=== PATIENT | female | born 1980 | race Caucasian/White ===

== ENCOUNTER → 2016-03-23 | Outpatient (CLI) | payer OTHER ==
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
--- NOTE | 2016-03-23 15:19 | US ---
Complete Obstetric Ultrasound History: 36-year-old with estimated gestational age of 19 weeks 5 days and EDC of August 12, 2016. Comparison: None available. Findings: Number: 1 Presentation: Vertex Placental location: Anterior. No previa. Cervix: Closed, measuring 3.7 cm transabdominally Maximum vertical pocket: 3.7 cm An anterior subserosal fibroid measures 3.5 x 4.4 x 2.8 cm. Two posterior subserosal fibroids are pre sent, measuring 4.0 x 2.1 x 2.8 cm and 5.2 x 3.3 x 4.6 cm. Biometry: Biparietal diameter: 48 mm 20 weeks, 4 days Head circumference: 178 mm 20 weeks, 2 days Abdominal circumference: 152 mm 20 weeks, 4 days Femur length: 31 mm 19 weeks, 4 days Humerus length: 31 mm 20 weeks, 2 days Transcerebellar diameter: 21 mm 20 weeks, 2 days Average ultrasound age: 20 weeks, 2 days EDC based on today's average ultrasound age: August 08, 2016 Estimated weight is 330 gms +/- 48 gms. The estimated weight percentile is 66 % based on previous dating. ANATOMY SURVEY: Supratentorial brain: Normal Posterior fossa: Normal Spine: Normal Nose and lips: Normal Heart: Four-chamber heart with a heart rate of 146 bpm. The outflow tracts are normal. Stomach: Normal Umbilical cord insertion: Normal Kidneys: Normal Bladder: Normal Number of cord vessels: Three Upper extremities: Normal Lower extremities: Normal Impression: 1. Living single intrauterine with size concordant with dates. 2. Unremarkable anatomy. 3. Fibroid uterus. Please see separate dictation for consultation performed by Heidi Butterfield MD, the same day.
== END ==
LOC: FIMAGING 12:03
PROVIDERS: ATTEND Midwife
DX: Z36 Encounter for antenatal screening of mother (principal); Z3A.19 19 weeks gestation of pregnancy; O34.12 Maternal care for benign tumor of corpus uteri, second trimester; O09.522 Supervision of elderly multigravida, second trimester; O10.912 Unspecified pre-existing hypertension complicating pregnancy, second trimester; O99.342 Other mental disorders complicating pregnancy, second trimester

== ENCOUNTER → 2016-05-21 | Outpatient (CLI) | payer OTHER | LOC: FIMAGING 09:17 | PROVIDERS: ATTEND Midwife | DX: O09.522 Supervision of elderly multigravida, second trimester (principal); Z3A.29 29 weeks gestation of pregnancy; O34.13 Maternal care for benign tumor of corpus uteri, third trimester; D25.9 Leiomyoma of uterus, unspecified; O10.913 Unspecified pre-existing hypertension complicating pregnancy, third trimester ==

== ENCOUNTER → 2016-06-16 | Outpatient (CLI) | payer OTHER | LOC: FIMAGING 13:56 | PROVIDERS: ATTEND Obstetrics & Gynecology | DX: Z36 Encounter for antenatal screening of mother (principal); O34.13 Maternal care for benign tumor of corpus uteri, third trimester; O09.523 Supervision of elderly multigravida, third trimester; Z3A.33 33 weeks gestation of pregnancy; O10.013 Pre-existing essential hypertension complicating pregnancy, third trimester; O40.3XX0 Polyhydramnios, third trimester, not applicable or unspecified ==

== ENCOUNTER → 2016-06-23 | Outpatient (CLI) | payer OTHER | LOC: FIMAGING 14:01 | PROVIDERS: ATTEND Obstetrics & Gynecology | DX: O09.513 Supervision of elderly primigravida, third trimester (principal); O10.013 Pre-existing essential hypertension complicating pregnancy, third trimester; O34.13 Maternal care for benign tumor of corpus uteri, third trimester; O40.3XX1 Polyhydramnios, third trimester, fetus 1; Z3A.32 32 weeks gestation of pregnancy ==

== ENCOUNTER 2016-07-11 11:08 | Observation (INO) | payer OTHER ==
[2016-07-11 11:51] LABS: % IMMATURE GRANULYOCYTES 2.3 % (0.0-1.1); ADD DIFF? NO; ADD MORPH? NO; ADD SCAN? NO; ATYPICAL LYMPHOCYTE FLAG 10 (0-99); FRAGMENT RBC FLAG 0 (0-99); HEMATOCRIT 36.8 % (38.0-47.0); HEMOGLOBIN 12.9 g/dL (12.6-16.3); LEFT SHIFT FLG 20 (0-99); LIPEMIA HEMOLYSIS FLAG 90 (0-99); MEAN CELL HEMOGLOBIN 32.9 pg (27.9-34.1); MEAN CELL HEMOGLOBIN CONCENTR. 35.1 g/dL (32.4-36.7); MEAN CELL VOLUME 93.9 fL (81.5-99.8); MEAN PLATELET VOLUME 9.7 fL (8.7-11.7); PLATELET CLUMPS FLAG 0 (0-99); PLATELET COUNT 217 10^3/uL (150-400); RED BLOOD CELL COUNT 3.92 10^6/uL (4.18-5.33); RED CELL DISTRIBUTION WIDTH 13.5 % (11.5-15.2)
--- NOTE | 2016-07-11 11:58 | OBPROG ---
OBG Progress Note Assessment/Plan: Assessment: P0 at 38w4d, CHTN and proteinuria No severe features features of preeclampsia including no severe range BPs, no symptoms, normal labs status reassuring No indication to start antihypertensive at this time Plan: discharge home with precautions. Reviewed plan of care in detail with patient and her answered all questions Repeat 24 hour urine protein. Discussed if significantly increased would consider dx of superimposed preeclampsia without severe features, in which case would administer steroids and plan IOL at 37 weeks (vs 38 weeks which is currently planned) F/u as scheduled on Wednesday with Dr. VAZQUEZ for NST. Will reevaluate BPs to determine if medication needed at that time and also review 24h urine protein F/u as scheduled on Wednesday for growth US 07/11/16 12:00 07/11/16 12:54 Subjective: P0 at 35w4d, pt of Dr. VAZQUEZ, here for elevated BPs at home. Pt is a known chronic hypertensive, was on atenolol prior to , BPs in normal range throughout most of , however increasing to 130s/90s at last office visit. Does have proteinuria which has been increasing since 1st trimester. PIH labs otherwise normal. she denies any PIH symptoms including headache, vision changes, swelling, abd pain. Baby is very active. No LOF, VB, ctx. At home BP was 135/112, checked manually by her . Objective: 07/11/16 11:45 WBC 8.74 10^3/uL (3.80-9.50) 07/11/16 11:45 RBC 3.92 10^6/uL (4.18-5.33) L 07/11/16 11:45 Hgb 12.9 g/dL (12.6-16.3) 07/11/16 11:45 Hct 36.8 % (38.0-47.0) L 07/11/16 11:45 MCV 93.9 fL (81.5-99.8) 07/11/16 11:45 MCH 32.9 pg (27.9-34.1) 07/11/16 11:45 MCHC 35.1 g/dL (32.4-36.7) 07/11/16 11:45 RDW 13.5 % (11.5-15.2) 07/11/16 11:45 Plt Count 217 10^3/uL (150-400) 07/11/16 11:45 MPV 9.7 fL (8.7-11.7) 07/11/16 11:45 Neut % (Auto) 68.9 % (39.3-74.2) 07/11/16 11:45 Lymph % (Auto) 21.4 % (15.0-45.0) 07/11/16 11:45 [place] % (Auto) 6.1 % (4.5-13.0) 07/11/16 11:45 Eos % (Auto) 1.1 % (0.6-7.6) 07/11/16 11:45 Baso % (Auto) 0.2 % (0.3-1.7) L 07/11/16 11:45 Nucleat RBC Rel Count 0.0 % (0.0-0.2) 07/11/16 11:45 Absolute Neuts (auto) 6.02 10^3/uL (1.70-6.50) 07/11/16 11:45 Absolute Lymphs (auto) 1.87 10^3/uL (1.00-3.00) 07/11/16 11:45 Absolute Monos (auto) 0.53 10^3/uL (0.30-0.80) 07/11/16 11:45 Absolute Eos (auto) 0.10 10^3/uL (0.03-0.40) 07/11/16 11:45 Absolute Basos (auto) 0.02 10^3/uL (0.02-0.10) 07/11/16 11:45 Absolute Nucleated RBC 0.00 10^3/uL (0-0.01) 07/11/16 11:45 Immature Gran % 2.3 % (0.0-1.1) H 07/11/16 11:45 Immature Gran # 0.20 10^3/uL (0.00-0.10) H 07/11/16 11:45 BUN 7 mg/dL (7-23) 07/11/16 11:45 Creatinine 0.5 mg/dL (0.6-1.0) L 07/11/16 11:45 Estimated GFR > 60 07/11/16 11:45 Uric Acid 5.2 mg/dL (2.5-6.8) 07/11/16 11:45 Total Bilirubin 0.4 mg/dL (0.1-1.4) 07/11/16 11:45 Conjugated Bilirubin 0.3 mg/dL (0.0-0.5) 07/11/16 11:45 Unconjugated Bilirubin 0.1 mg/dL (0.0-1.1) 07/11/16 11:45 AST 20 IU/L (14-46) 07/11/16 11:45 ALT 25 IU/L (9-52) 07/11/16 11:45 Lactate Dehydrogenase 330 IU/L (313-618) 07/11/16 11:45 BP 127-138/77-95 Pulse 88-103 Gen: NAD, AOx4 Resp: lungs clear CV: RRR Abd: gravid, soft, nontender Ext: no edema, 2+ DTRs Current Contraction Pattern: Other (Specify) (none) FHR (bpm): 130 FHR Pattern Variability: Moderate FHR Category: 1 Membranes: Intact ICD10 Worksheet Patient Problems: Problems Problem Status Onset Chronic hypertension affecting Acute - ICD10 Problem Qualifiers (1) Chronic hypertension affecting
[2016-07-11 12:30] LABS: ALANINE AMINOTRANSFERASE 25 IU/L (9-52); ASPARTATE AMINOTRANSFERASE 20 IU/L (14-46); BILIRUBIN,TOTAL 0.4 mg/dL (0.1-1.4); BILIRUBIN-CONJUGATED 0.3 mg/dL (0.0-0.5); BILIRUBIN-UNCONJUGATED 0.1 mg/dL (0.0-1.1); CREATININE 0.5 mg/dL (0.6-1.0); GLOMERULAR FILTRATION RATE > 60; LACTATE DEHYDROGENASE 330 IU/L (313-618); URIC ACID 5.2 mg/dL (2.5-6.8)
== END 2016-07-11 13:05 | disposition home or self-care (01) ==
LOC: FLD 11:08
PROVIDERS: ADMIT Obstetrics & Gynecology; ATTEND Obstetrics & Gynecology
DX: O10.913 Unspecified pre-existing hypertension complicating pregnancy, third trimester (principal); O12.13 Gestational proteinuria, third trimester; Z3A.38 38 weeks gestation of pregnancy
CPT/HCPCS: 59025; G0378

== ENCOUNTER → 2016-07-14 | Outpatient (CLI) | payer OTHER | LOC: FIMAGING 13:48 | PROVIDERS: ATTEND Obstetrics & Gynecology | DX: O09.513 Supervision of elderly primigravida, third trimester (principal); Z3A.36 36 weeks gestation of pregnancy; O10.013 Pre-existing essential hypertension complicating pregnancy, third trimester; O34.13 Maternal care for benign tumor of corpus uteri, third trimester ==

== ENCOUNTER 2016-07-23 19:53 | Observation (INO) | payer OTHER ==
[2016-07-23 20:28] LABS: ABSOLUTE IMMATURE GRANULOCYTES 0.18 10^3/uL (0.00-0.10); ADD DIFF? NO; ADD MORPH? NO; ADD SCAN? NO; ATYPICAL LYMPHOCYTE FLAG 0 (0-99); FRAGMENT RBC FLAG 0 (0-99); HEMOGLOBIN 13.6 g/dL (12.6-16.3); LEFT SHIFT FLG 10 (0-99); LIPEMIA HEMOLYSIS FLAG 90 (0-99); MEAN CELL HEMOGLOBIN 33.4 pg (27.9-34.1); MEAN CELL HEMOGLOBIN CONCENTR. 34.9 g/dL (32.4-36.7); MEAN CELL VOLUME 95.8 fL (81.5-99.8); MEAN PLATELET VOLUME 10.2 fL (8.7-11.7); PLATELET CLUMPS FLAG 0 (0-99); PLATELET COUNT 213 10^3/uL (150-400); RED BLOOD CELL COUNT 4.07 10^6/uL (4.18-5.33); RED CELL DISTRIBUTION WIDTH 13.5 % (11.5-15.2)
[2016-07-23 20:43] LABS: ALANINE AMINOTRANSFERASE 23 IU/L (9-52); ASPARTATE AMINOTRANSFERASE 20 IU/L (14-46); BILIRUBIN,TOTAL 0.4 mg/dL (0.1-1.4); BILIRUBIN-CONJUGATED 0.3 mg/dL (0.0-0.5); BILIRUBIN-UNCONJUGATED 0.1 mg/dL (0.0-1.1); CREATININE 0.5 mg/dL (0.6-1.0); GLOMERULAR FILTRATION RATE > 60; LACTATE DEHYDROGENASE 350 IU/L (313-618); URIC ACID 4.9 mg/dL (2.5-6.8)
== END 2016-07-23 22:18 | disposition home or self-care (01) ==
LOC: FLD 19:53
PROVIDERS: ADMIT Obstetrics & Gynecology; ATTEND Obstetrics & Gynecology
DX: O16.3 Unspecified maternal hypertension, third trimester (principal); Z3A.37 37 weeks gestation of pregnancy
CPT/HCPCS: 59025; G0378

== ENCOUNTER 2016-07-27 03:00 | Observation (INO) | payer OTHER ==
[2016-07-27] MEDS ORDERED: LR 1,000 ML IV ONE (03:30)
[2016-07-27 03:59] LABS: % IMMATURE GRANULYOCYTES 2.1 % (0.0-1.1); ADD DIFF? NO; ADD MORPH? NO; ADD SCAN? NO; ATYPICAL LYMPHOCYTE FLAG 10 (0-99); FRAGMENT RBC FLAG 0 (0-99); HEMATOCRIT 37.2 % (38.0-47.0); HEMOGLOBIN 13.1 g/dL (12.6-16.3); LEFT SHIFT FLG 20 (0-99); LIPEMIA HEMOLYSIS FLAG 90 (0-99); MEAN CELL HEMOGLOBIN CONCENTR. 35.2 g/dL (32.4-36.7); MEAN CELL VOLUME 96.6 fL (81.5-99.8); MEAN PLATELET VOLUME 10.3 fL (8.7-11.7); PLATELET CLUMPS FLAG 0 (0-99); PLATELET COUNT 209 10^3/uL (150-400); RED BLOOD CELL COUNT 3.85 10^6/uL (4.18-5.33); RED CELL DISTRIBUTION WIDTH 13.6 % (11.5-15.2)
[2016-07-27 04:39] LABS: ALANINE AMINOTRANSFERASE 26 IU/L (9-52); ASPARTATE AMINOTRANSFERASE 26 IU/L (14-46); BILIRUBIN,TOTAL 0.5 mg/dL (0.1-1.4); BILIRUBIN-CONJUGATED 0.4 mg/dL (0.0-0.5); BILIRUBIN-UNCONJUGATED 0.1 mg/dL (0.0-1.1); CREATININE 0.6 mg/dL (0.6-1.0); GLOMERULAR FILTRATION RATE > 60; LACTATE DEHYDROGENASE 460 IU/L (313-618); URIC ACID 5.5 mg/dL (2.5-6.8)
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
--- NOTE | 2016-07-27 09:48 | OBPROG ---
OBG Progress Note Assessment/Plan: Assessment: 36 y/o at 37+5 weeks EGA w/ CHTN and migraine headache - Plan: 1) CHTN: BP's current stable, 130s/80s. 2) Migraine CARTWRIGHT: Will give tylenol now, offered IV morphine/zofran if needed to help w/ symptoms. 3) R/O preeclampsia: Her BP's are currently stable, PIH labs normal on admission. No other PIH symptoms. Recent growth scan this month normal w/ MFM. Will get repeat PIH labs as planned by admitting physician. Discussed will start repeat 24 hr urine protein for more information. However, plan IOL at 38 weeks for CHTN. Plan to keep her hospitalized if her CARTWRIGHT does not improve , if her BP's become elevated in the severe range, or other PIH symptoms evolve. At this point, she states that her CARTWRIGHT feels the same as her prior migraines. If this changes or any severe BP's occur that are not controlled with meds, will consider starting induction now. 4) GBS neg 5) Counseled patient and , all questions answered. 07/27/16 09:48 Subjective: Pt reports CARTWRIGHT, left frontal, consistent with her prior migraines, ranked 5-6/10 now. It was 9/10 on admission. No visual changes, RUQ pain. No lof/vb/ctx adn good FM. Objective: 07/27/16 03:30 07/27/16 03:30 Uric Acid 5.5 mg/dL (2.5-6.8) 07/27/16 03:30 Total Bilirubin 0.5 mg/dL (0.1-1.4) 07/27/16 03:30 Conjugated Bilirubin 0.4 mg/dL (0.0-0.5) 07/27/16 03:30 Unconjugated Bilirubin 0.1 mg/dL (0.0-1.1) 07/27/16 03:30 AST 26 IU/L (14-46) 07/27/16 03:30 ALT 26 IU/L (9-52) 07/27/16 03:30 Lactate Dehydrogenase 460 IU/L (313-618) 07/27/16 03:30 FHR (bpm): 130 FHR Pattern Variability: Moderate FHR Category: 1 ICD10 Worksheet Patient Problems: Problems Problem Status Onset Migraine headache Acute Chronic hypertension affecting Acute - ICD10 Problem Qualifiers (1) Migraine headache Qualifiers: Migraine type: without aura Status migrainosus presence: without status migrainosus Intractability: I
[2016-07-27] MEDS: ACETAMINOPHEN 325 MG TAB PO PRN ×2 (10:03→21:34)
[2016-07-27 10:35] LABS: ALANINE AMINOTRANSFERASE 31 IU/L (9-52); ASPARTATE AMINOTRANSFERASE 22 IU/L (14-46); BILIRUBIN,TOTAL 0.4 mg/dL (0.1-1.4); BILIRUBIN-CONJUGATED 0.2 mg/dL (0.0-0.5); BILIRUBIN-UNCONJUGATED 0.2 mg/dL (0.0-1.1); CREATININE 0.5 mg/dL (0.6-1.0); GLOMERULAR FILTRATION RATE > 60; LACTATE DEHYDROGENASE 384 IU/L (313-618); URIC ACID 5.1 mg/dL (2.5-6.8)
[2016-07-27] MEDS: LABETALOL HCL 100 MG TAB PO SCH ×2 (12:05→21:24)
[2016-07-27] MEDS: lamoTRIgine 25 MG TAB PO SCH (13:55)
[2016-07-27] MEDS: ONDANSETRON 4 MG/2 ML VIAL IVP PRN (13:57)
[2016-07-27] MEDS: ACYCLOVIR 400 MG TAB PO SCH ×2 (15:19→21:24)
[2016-07-27] MEDS ORDERED: ZOLPIDEM TARTRATE 5 MG TAB PO PRN (19:13)
[2016-07-27] MEDS: QUEtiapine FUMARATE 25 MG TAB PO SCH (21:26)
[2016-07-28] MEDS: ONDANSETRON 4 MG/2 ML VIAL IVP PRN (03:25)
[2016-07-28 03:39] LABS: ABSOLUTE IMMATURE GRANULOCYTES 0.26 10^3/uL (0.00-0.10); ADD DIFF? NO; ADD MORPH? NO; ADD SCAN? NO; ATYPICAL LYMPHOCYTE FLAG 10 (0-99); FRAGMENT RBC FLAG 0 (0-99); HEMATOCRIT 35.8 % (38.0-47.0); HEMOGLOBIN 12.4 g/dL (12.6-16.3); LEFT SHIFT FLG 20 (0-99); LIPEMIA HEMOLYSIS FLAG 90 (0-99); MEAN CELL HEMOGLOBIN 33.4 pg (27.9-34.1); MEAN CELL HEMOGLOBIN CONCENTR. 34.6 g/dL (32.4-36.7); MEAN CELL VOLUME 96.5 fL (81.5-99.8); MEAN PLATELET VOLUME 10.1 fL (8.7-11.7); PLATELET CLUMPS FLAG 30 (0-99); PLATELET COUNT 196 10^3/uL (150-400); RED BLOOD CELL COUNT 3.71 10^6/uL (4.18-5.33); RED CELL DISTRIBUTION WIDTH 13.8 % (11.5-15.2)
[2016-07-28 03:49] LABS: ALANINE AMINOTRANSFERASE 24 IU/L (9-52); ALBUMIN 3.1 g/dL (3.5-5.0); ALKALINE PHOSPHATASE 104 IU/L (38-126); ANION GAP 6 mEq/L (8-16); ASPARTATE AMINOTRANSFERASE 17 IU/L (14-46); BILIRUBIN,TOTAL 0.3 mg/dL (0.1-1.4); CALCIUM 9.4 mg/dL (8.5-10.4); CARBON DIOXIDE 20 mEq/l (22-31); CHLORIDE 110 mEq/L (97-110); CREATININE 0.5 mg/dL (0.6-1.0); GLOMERULAR FILTRATION RATE > 60; GLUCOSE 91 mg/dL (70-100); LACTATE DEHYDROGENASE 317 IU/L (313-618); POTASSIUM 4.3 mEq/L (3.5-5.2); SODIUM 136 mEq/L (134-144); TOTAL PROTEIN 5.8 g/dL (6.3-8.2)
[2016-07-28] MEDS ORDERED: PRENATAL VIT 1 EACH TAB PO SCH (08:00)
--- NOTE | 2016-07-28 09:03 | SOAPPROG ---
SOAP Progress Note Assessment/Plan: Assessment: 36 yo @ 37 6/7, with CHTN, Plan: 07/28/16 09:01 BP stable with labetalol. FWB reassuring. Will d/c home today and follow up this evening for IOL for CHTN. Subjective: 36 yo @ 37 6/7, with CHTN, still has a mild headache, BPs stable on labetalol. Objective: Vital Signs Temp Pulse Resp BP Pulse Ox 72 160/97 H 07/27/16 21:24 07/27/16 21:24 Laboratory Results 07/28/16 03:15 07/28/16 03:15 142/87, 141/91 [place]-no contractions NST 140s, mod variability, +accels Physical Exam - Physical Exam General Appearance: no apparent distress ICD10 Worksheet Patient Problems: Problems Problem Status Onset Migraine headache Acute Chronic hypertension affecting Acute
[2016-07-28] MEDS: QUEtiapine FUMARATE 25 MG TAB PO SCH (09:09)
[2016-07-28] MEDS: lamoTRIgine 25 MG TAB PO SCH (09:12)
[2016-07-28] MEDS: LABETALOL HCL 100 MG TAB PO SCH (09:12)
[2016-07-28] MEDS: ACETAMINOPHEN 325 MG TAB PO PRN (09:13)
[2016-07-28] MEDS: ACYCLOVIR 400 MG TAB PO SCH (09:13)
[2016-07-28 09:14] VITALS: BP 142/91; PULSE 78
== END 2016-07-28 09:30 | disposition home or self-care (01) ==
LOC: FLD 03:00
PROVIDERS: ADMIT Obstetrics & Gynecology; ATTEND Obstetrics & Gynecology
DX: O11.3 Pre-existing hypertension with pre-eclampsia, third trimester (principal); Z3A.37 37 weeks gestation of pregnancy
CPT/HCPCS: 59025; G0378; J2405

== ENCOUNTER 2016-07-28 18:09 | Inpatient (IN) | payer OTHER ==
[2016-07-28] MEDS ORDERED: ACETAMINOPHEN 325 MG TAB PO PRN (20:08)
[2016-07-28] MEDS ORDERED: CALCIUM CARBONATE 500 MG CHEWABLE TAB PO PRN (20:09)
[2016-07-28] MEDS ORDERED: ZOLPIDEM TARTRATE 5 MG TAB PO PRN ×2 (20:09→21:22)
[2016-07-28] MEDS ORDERED: BISACODYL 10 MG SUPP PR PRN (21:56)
[2016-07-28] MEDS ORDERED: MAGNESIUM HYDROXIDE 30 ML UDCUP PO PRN (21:56)
[2016-07-28] MEDS ORDERED: LACTULOSE 20 GM/30 ML UDCUP PO PRN (21:56)
[2016-07-28] MEDS: ACYCLOVIR 400 MG TAB PO SCH (22:16)
[2016-07-28] MEDS: QUEtiapine FUMARATE 200 MG TAB PO SCH (22:16)
[2016-07-28] MEDS: LABETALOL HCL 100 MG TAB PO SCH (22:17)
[2016-07-28 22:21] LABS: ADD DIFF? YES; ADD MORPH? NO; ADD SCAN? NO; ATYPICAL LYMPHOCYTE FLAG 0 (0-99); FRAGMENT RBC FLAG 0 (0-99); HEMATOCRIT 38.2 % (38.0-47.0); HEMOGLOBIN 13.2 g/dL (12.6-16.3); LEFT SHIFT FLG 30 (0-99); LIPEMIA HEMOLYSIS FLAG 90 (0-99); MEAN CELL HEMOGLOBIN 33.8 pg (27.9-34.1); MEAN CELL HEMOGLOBIN CONCENTR. 34.6 g/dL (32.4-36.7); MEAN CELL VOLUME 97.7 fL (81.5-99.8); MEAN PLATELET VOLUME 10.3 fL (8.7-11.7); PLATELET CLUMPS FLAG 0 (0-99); PLATELET COUNT 225 10^3/uL (150-400); RED BLOOD CELL COUNT 3.91 10^6/uL (4.18-5.33); RED CELL DISTRIBUTION WIDTH 13.8 % (11.5-15.2)
[2016-07-28 22:51] LABS: PLATELET ESTIMATE ADEQUATE (ADEQ)
[2016-07-29] MEDS: OXYTOCIN/LR *STANDARD DOSE PROTOCOL IV SCH (04:00)
[2016-07-29] MEDS ORDERED: LR 1,000 ML IV SCH (04:00)
[2016-07-29] MEDS ORDERED: LIDOCAINE 1% 300 MG/30 ML SDV ONE (06:37)
[2016-07-29] MEDS ORDERED: AMMONIA AROMATIC 1 EACH AMP IH ONE (06:38)
[2016-07-29] MEDS ORDERED: OXYTOCIN 10 UNIT/ML VIAL ONE (06:38)
[2016-07-29] MEDS ORDERED: OLIVE OIL 118 ML BTL ONE (06:38)
[2016-07-29] MEDS ORDERED: MISOPROSTOL 200 MCG TAB ONE (06:38)
[2016-07-29] MEDS ORDERED: TERBUTALINE SULFATE 1 MG/ML VIAL ONE (06:38)
--- NOTE | 2016-07-29 08:33 | OBPROG ---
OBG Progress Note Assessment/Plan: Assessment: 36 yo @ 38 0/7, IOL for CHTN Plan: 07/29/16 08:31 FWB reassuring. GBS neg. BPs stable. Rivas bulb replaced, rec epidural. Subjective: 36 yo @ 38 0/7, IOL for CHTN Objective: 07/28/16 21:40 Patient ABO/Rh A POSITIVE 07/28/16 21:40 Temp Pulse Resp BP Pulse Ox 74 172/94 H 07/28/16 22:17 07/28/16 22:17 138/85 73 36.4 - SVE Dilation (cm): 1 Effacement (%): 50 Station: -2 Current Contraction Pattern: Regular FHR (bpm): 140 FHR Pattern Variability: Moderate FHR Category: 2 ICD10 Worksheet Patient Problems: Problems Problem Status Onset Chronic hypertension affecting Acute Migraine headache Acute
[2016-07-29] MEDS: LABETALOL HCL 100 MG TAB PO SCH ×2 (08:53→20:35)
[2016-07-29] MEDS: lamoTRIgine 25 MG TAB PO SCH (08:53)
[2016-07-29] MEDS: ACYCLOVIR 400 MG TAB PO SCH ×3 (08:54→20:37)
[2016-07-29] MEDS ORDERED: fentanYL 4MCG/ML/BUP 0.0625% RTU 250 ML BAG EP ONE (08:58)
[2016-07-29] MEDS ORDERED: PHENYLEPHRINE HCL 100 MCG/ML SYR ONE (08:59)
[2016-07-29] MEDS ORDERED: lamoTRIgine 25 MG TAB PO SCH (09:00)
[2016-07-29] MEDS ORDERED: LR 500 ML IV SCH ×2 (10:00→23:45)
[2016-07-29] MEDS: SENNOSIDES/DOCUSATE SODIUM TAB PO SCH ×2 (13:13→20:36)
[2016-07-29] MEDS ORDERED: fentaNYL 2MCG/ML/BUP 0.1% RTU 100 ML BAG EP ONE (14:15)
--- NOTE | 2016-07-29 16:12 | OBPROG ---
OBG Progress Note Assessment/Plan: Assessment: 36 yo @ 38 0/7, IOL for CHTN(late entry for 1200 exam) Plan: FWB reassuring. GBS neg. BPs stable. Chance bulb still in place, comfortable with epidural. Will recheck in 4-5 hours to see if chance may be removed and may perform amniotomy. 07/29/16 16:11 Subjective: 36 yo @ 38 0/7, IOL for CHTN(late entry for 1200 exam)-sleeping with epidural. Objective: 07/28/16 21:40 Patient ABO/Rh A POSITIVE 07/28/16 21:40 Temp Pulse Resp BP Pulse Ox 73 138/85 H 07/29/16 08:53 07/29/16 08:53 - SVE Dilation (cm): 2 Effacement (%): Less than 50 Station: -2 Current Contraction Pattern: Regular FHR (bpm): 140 FHR Pattern Variability: Moderate FHR Category: 2 ICD10 Worksheet Patient Problems: Problems Problem Status Onset Chronic hypertension affecting Acute Migraine headache Acute
[2016-07-29] MEDS ORDERED: diphenhydrAMINE 25 MG CAP PO PRN (17:19)
--- NOTE | 2016-07-29 17:22 | OBPROG ---
OBG Progress Note Assessment/Plan: Assessment: 36 yo @ 38 0/7, IOL for CHTN-comfortable with epidural, no headache. Plan: FWB reassuring. GBS neg. BPs elevated, will increase labetalol dose to 200 mg bid, start at 9 pm this evening. Chance bulb still in place, comfortable with epidural. Cervical exam changed to 3 cm. Discussed with patient recommend discontinuation of pitocin for now, resume at midnight, keep epidural in place for pain management, plan on AROM in the morning. Discussed with the patient that as she has been on pitocin for about 12 hours, she may potentially have receptor saturation with the pitocin and recommend stopping until midnight while keeping the chance bulb in the cervix for ripening. The patient agrees to this plan. 07/29/16 17:19 Subjective: 36 yo @ 38 0/7, IOL for CHTN-comfortable with epidural, no headache. Objective: 07/28/16 21:40 Patient ABO/Rh A POSITIVE 07/28/16 21:40 Temp Pulse Resp BP Pulse Ox 73 138/85 H 07/29/16 08:53 07/29/16 08:53 161/95 73 16 95% 36.6 - SVE Dilation (cm): 3 Effacement (%): Less than 50 Station: -2 Current Contraction Pattern: Regular FHR (bpm): 130 FHR Pattern Variability: Moderate FHR Category: 2 ICD10 Worksheet Patient Problems: Problems Problem Status Onset Chronic hypertension affecting Acute Migraine headache Acute
[2016-07-29] MEDS: QUEtiapine FUMARATE 200 MG TAB PO SCH (20:10)
--- NOTE | 2016-07-29 21:04 | OBPROG ---
OBG Progress Note Assessment/Plan: Assessment: 38w0d, here for IOL for CHTN FB in place status reassuring BPs elevated just above severe range for past 4 hours. Pt just received po labetalol 200 mg No PIH symptoms Plan: PO labetalol just given. Now BP just hovering on severe range at 161/90. Reviewed plan of care with RN, if still has BPs > 160/90 at 10:30 (2 hrs from po labetaol) will give IV push labetalol. Do not want to give now as she just received po antihypertensive and don't want to stack meds. 07/29/16 21:01 Subjective: Comfortable with epidural Objective: 07/28/16 21:40 Patient ABO/Rh A POSITIVE 07/28/16 21:40 Temp Pulse Resp BP Pulse Ox 73 161/90 H 07/29/16 20:35 07/29/16 20:35 BPs: 160-174/85-109 Current Contraction Pattern: Irregular FHR (bpm): 130 FHR Pattern Variability: Moderate FHR Category: 1 Membranes: Intact ICD10 Worksheet Patient Problems: Problems Problem Status Onset Chronic hypertension affecting Acute Migraine headache Acute
[2016-07-29] MEDS ORDERED: fentaNYL 2MCG/ML/BUP 0.1% RTU 100 ML EP SCH (23:00)
[2016-07-30] MEDS: OXYTOCIN/LR *STANDARD DOSE PROTOCOL IV SCH (00:05)
--- NOTE | 2016-07-30 08:21 | OBPROG ---
OBG Labor Progress Note Assessment/Plan: Assessment: 36 yo @ 38 1/7, IOL for CHTN-comfortable with epidural, no headache. Plan: FWB reassuring. GBS neg. BPs stable on labetalol 200 mg bid dose. Arom clear, IUPC placed. Recheck in 4 hours. 07/30/16 08:19 Subjective: 36 yo @ 38 1/7, IOL for CHTN-comfortable with epidural, no headache. Objective: 07/28/16 21:40 Patient ABO/Rh A POSITIVE 07/28/16 21:40 Temp Pulse Resp BP Pulse Ox 73 161/90 H 07/29/16 20:35 07/29/16 20:35 147/85 70 FHTS 130s, mod variability, +accels. [place] q 2 min, mvu appear adequate - SVE Dilation (cm): 5 Effacement (%): 50 Station: -2 - Procedures Non-surgical Procedures: Amniotomy, IUPC Oxytocin Orders Assessment - Pre-Induction/Augmentation Assessment Gestational Age: 37 week(s) and 6 day(s) ICD10 Worksheet Patient Problems: Problems Problem Status Onset Chronic hypertension affecting Acute Migraine headache Acute
[2016-07-30] MEDS: lamoTRIgine 25 MG TAB PO SCH (08:48)
[2016-07-30] MEDS: LABETALOL HCL 100 MG TAB PO SCH ×2 (08:49→20:58)
[2016-07-30] MEDS: ACYCLOVIR 400 MG TAB PO SCH ×3 (08:49→20:57)
[2016-07-30] MEDS ORDERED: ONDANSETRON 4 MG/2 ML VIAL IVP PRN (08:58)
--- NOTE | 2016-07-30 14:17 | OBPROG ---
OBG Labor Progress Note Assessment/Plan: Assessment: 36 yo @ 38 1/7, IOL for CHTN-comfortable with epidural, no headache(late entry for 11:30 note) Plan: FWB reassuring. GBS neg. BPs stable on labetalol 200 mg bid dose. Arom clear, IUPC placed. Labor progressing, will recheck in 3 hours. 07/30/16 14:14 Subjective: 36 yo @ 38 1/7, IOL for CHTN-comfortable with epidural, no headache(late entry for 11:30 note) Objective: 07/28/16 21:40 Patient ABO/Rh A POSITIVE 07/28/16 21:40 Temp Pulse Resp BP Pulse Ox 72 147/85 H 07/30/16 08:49 07/30/16 08:49 vss - SVE Dilation (cm): 6 Effacement (%): 90 Station: -1 [place] FHR Pattern Variability: Moderate FHR Category: 2 Membranes: AROM Amniotic Fluid Color: Clear - Procedures Non-surgical Procedures: Amniotomy, IUPC Oxytocin Orders Assessment - Pre-Induction/Augmentation Assessment Gestational Age: 37 week(s) and 6 day(s) ICD10 Worksheet Patient Problems: Problems Problem Status Onset Chronic hypertension affecting Acute Migraine headache Acute
[2016-07-30] MEDS ORDERED: METHYLERGONOVINE MAL 0.2 MG/ML INJ ONE (15:18)
[2016-07-30] MEDS ORDERED: HEMABATE 250 MCG/1 ML AMP IM ONE (15:21)
[2016-07-30] MEDS ORDERED: HYDROCORTISONE 0.5% CREAM TP PRN (15:35)
[2016-07-30] MEDS ORDERED: DOCUSATE SODIUM 100 MG CAP PO PRN (15:35)
--- NOTE | 2016-07-30 15:38 | OBDEL ---
Info Type: Vaginal GBS+: No Indications for Delivery: Chronic HTN Control w/med Vaginal Delivery - Labor and Delivery Onset of Contractions Date: 07/29/16 Onset of Contractions Time: 05:00 Onset of Contractions Type: Induced Rupture of Membranes Date: 07/30/16 Rupture of Membranes Time: 08:00 Rupture of Membranes Type: Artificial Amniotic Fluid Color: Clear Dilation Complete Date: 07/30/16 Dilation Complete Time: 13:30 Placenta Delivery Date: 07/30/16 Non-surgical Procedures: Amniotomy, IUPC Episiotomy: Midline Laceration: 2nd Degree Repair: 3-0, Vicryl Vaginal Sponge Count Correct: Yes Vaginal Needle Count Correct: Yes Vaginal Sweep Performed: Yes EBL: 200 ml Delivery Events: Nuchal Cord - Medications Labor Augmentation/Induction Methods Used: Pitocin Labor Augmentation/Induction Indication: Medical (chronic hypertension, on medication) Data Deras Delivery Date: 07/30/16 Delivery Time: 15:15 RYAN: 08/12/16 Gestational Age: 38 week(s) and 1 day(s) Sex of Infant: Male Score (1 Min): 7 Score (5 Min): 8 ICD10 Worksheet Patient Problems: Problems Problem Status Onset Chronic hypertension affecting Acute Migraine headache Acute
[2016-07-30] MEDS ORDERED: IBUPROFEN 600 MG TAB PO ONE (16:15)
[2016-07-30] MEDS: HYDROCODONE/APAP 5/325 TAB PO PRN (17:04)
[2016-07-30] MEDS: SENNOSIDES/DOCUSATE SODIUM TAB PO SCH ×2 (20:59→21:57)
[2016-07-30] MEDS: IBUPROFEN 600 MG TAB PO PRN (22:39)
[2016-07-30] MEDS: QUEtiapine FUMARATE 200 MG TAB PO SCH (23:22)
[2016-07-31] MEDS: HYDROCODONE/APAP 5/325 TAB PO PRN (01:21)
[2016-07-31] MEDS: IBUPROFEN 600 MG TAB PO PRN ×3 (06:04→19:40)
--- NOTE | 2016-07-31 08:21 | SOAPPROG ---
SOAP Progress Note Assessment/Plan: Assessment: 36 y.o. s/p PPD #1. Patient had IOL for CHTN with BP stable on Labetalol 200mg BID. Screening [facility] labs on admission were normal. Reports experiencing some left leg pain and numbness following VIN. Able to ambulate and bear weight on both legs. with assistance. Plan: Will have Anesth evaluate patient's leg pain and numbness. consult PRN. 07/31/16 08:18 Subjective: Reports left leg pain and numbness from VIN, but able to bear weight on both legs. Reports minimal vaginal bleeding and uterine cramping. Reports mild gas pain/ distention. Eating and drinking well without n/v. Ambulating without vertigo. with assistance. Appropriate mood with good support system. Objective: Vital Signs Temp Pulse Resp BP Pulse Ox 36.8 C 74 16 134/82 H 93 07/30/16 20:00 07/30/16 20:58 07/30/16 20:00 07/30/16 20:58 07/30/16 20:00 Laboratory Results 07/28/16 21:40 07/30/16 07/31/16 08/01/16 05:59 05:59 05:59 Output Total 1300 Balance -1300 - Time Spent With Patient Time Spent With Patient: 20 minutes - Pending Discharge Pending Discharge Within 24 Hours: Yes Pending Discharge Date: 08/01/16 Pending Discharge Time: 11:00 Physical Exam - Physical Exam General Appearance: WD/WN, alert, no apparent distress EENT: normal ENT inspection Neck: non-tender, full range of motion, normal inspection Respiratory: lungs clear, normal breath sounds Cardiac/Chest: regular rate, rhythm Abdomen: non-tender, soft Pelvic Exam: normal external exam Rectal: deferred Back: Normal inspection Skin: normal color, warm/dry Lymphatic: no adenopathy Extremities: normal range of motion, non-tender, normal inspection Neuro/Psych: alert, normal mood/affect, oriented x 3 ICD10 Worksheet Patient Problems: Problems Problem Status Onset Chronic hypertension affecting Acute Migraine headache Acute
[2016-07-31] MEDS: SENNOSIDES/DOCUSATE SODIUM TAB PO SCH ×2 (09:25→21:00)
[2016-07-31] MEDS: lamoTRIgine 25 MG TAB PO SCH (09:26)
[2016-07-31] MEDS: ACYCLOVIR 400 MG TAB PO SCH ×3 (09:26→21:00)
[2016-07-31] MEDS: LABETALOL HCL 100 MG TAB PO SCH ×2 (09:26→21:01)
[2016-07-31] MEDS: SIMETHICONE 80 MG TAB CHEW PO PRN (11:38)
[2016-07-31] MEDS: POLYETHYLENE GLYCOL 3350 17 GM PKT PO PRN (14:38)
--- NOTE | 2016-07-31 16:38 | SOAPPROG ---
SOAP Progress Note Assessment/Plan: Assessment: Patient is 24 hours post vaginal delivery. Low lumbar epidural in place for 29 hours. Patient reported pain on her left leg yesterday, when she arrived in mom and baby section. I was called today for consulation. On examination the patient has full motor strength on both legs, with mild pain and dysesthesia on the distribution of the left lateral femoral cutaneous nerve (possible meralgia paresthetica). Left sciatic nerve is intact. I discussed with the patient the treatment, ibuprofen, avoid stretching the nerve, avoid hip flexion, use heat packs for the back muscle spasms. I will follow up with the patient after she will be discharged until the nerve symptoms will dissapear. Plan: 07/31/16 16:23 Objective: Vital Signs Temp Pulse Resp BP Pulse Ox 36.1 C 93 16 157/93 H 96 07/31/16 09:28 07/31/16 09:28 07/30/16 20:00 07/31/16 09:28 07/31/16 09:28 Laboratory Results 07/28/16 21:40 07/30/16 07/31/16 08/01/16 05:59 05:59 05:59 Output Total 1300 Balance -1300 ICD10 Worksheet Patient Problems: Problems Problem Status Onset Chronic hypertension affecting Acute Migraine headache Acute
[2016-07-31 21:36] VITALS: RESP 16
[2016-07-31] MEDS: QUEtiapine FUMARATE 200 MG TAB PO SCH (21:57)
[2016-08-01] MEDS: IBUPROFEN 600 MG TAB PO PRN ×4 (01:35→20:02)
[2016-08-01] MEDS: lamoTRIgine 100 MG TAB PO SCH (08:40)
[2016-08-01] MEDS: SENNOSIDES/DOCUSATE SODIUM TAB PO SCH ×2 (08:40→21:02)
[2016-08-01] MEDS: ACYCLOVIR 400 MG TAB PO SCH ×2 (08:42→21:01)
--- NOTE | 2016-08-01 09:06 | OBGCSDC ---
General Delivery Information - General Info : 1 Para: 1 Delivery Physician/CNM: Fide Carroll Labs: Patient ABO/Rh A POSITIVE 07/28/16 21:40 Hct 38.2 % (38.0-47.0) 07/28/16 21:40 Vaginal - Diagnosis Labor: Induced Rupture of Membranes Type: Artificial Amniotic Fluid Color: Clear Episiotomy: Midline Laceration: 2nd Degree Repair: 3-0, Vicryl Delivery Events: Nuchal Cord - Operations/Procedures Non-surgical Procedures: Amniotomy, IUPC L&D Analgesia/Anesthesia Type: Epidural - Hospital Course Antepartum: CHTN. IOL at 38 weeks. Intrapartum: FB, pitocin IOL. . Started on labetaol 200 mg BID for elevated BPs. No e/o preeclampsia : BPs under good control. Plan home PPD#3, staying as baby under bili lights and mom needs to work more on . Monitor BPs at home two times daily, call if <120/80 or > 160/100 - Delivery Non-surgical Procedures: Amniotomy, IUPC L&D Analgesia/Anesthesia Type: Epidural [place] Data Deras Delivery Date: 07/30/16 Delivery Time: 15:15 RYAN: 08/12/16 Gestational Age: 38 week(s) and 4 day(s) Sex of Infant: Male Weight (gm): 2830 kg Score (1 Min): 7 Score (5 Min): 8 Discharge Information - Discharge Information Discharge Medications: Hydrocodone, Ibuprofen, Vitamins, Other (Specify ) (labetalol 200 mg po BID) Condition: Good Instruction/Follow Up: Two Weeks Discharge Physician/CNM: Nitza Tucker
--- NOTE | 2016-08-01 09:09 | OBPP ---
Progress Note Assessment/Plan: Assessment: PPD#2 s/p after IOL at 38 weeks for CHTN BPs under good control Needs to work more on latching Plan: Continue routine pp care Rx for APNO to [facility] [facility] today vs tomorrow Subjective: Thinking she wants to stay until tomorrow. Baby is only latching well on one side, other side is scabbed and hurting, wants to see again. No heavy bleeding. Pain under much better control, with ibuprofen and norco prn. Also leg is feeling almost back to normal Objective: 07/28/16 21:40 Patient ABO/Rh A POSITIVE 07/28/16 21:40 Temp Pulse Resp BP Pulse Ox 36.6 C 83 16 124/87 H 97 07/31/16 20:35 07/31/16 21:01 07/31/16 20:35 07/31/16 21:01 07/31/16 20:35 Gen: NAD Resp: unlabored CV: RRR Abd: soft, nontender, uterus firm below U Ext: no edema Uterine Position/Fundal Height: Umbilicus -1 Uterine Tone: Firm
[2016-08-01] MEDS ORDERED: EPSOM SALT 454 GM TP ONE ×2 (09:10→14:30)
[2016-08-01] MEDS: LABETALOL HCL 100 MG TAB PO SCH ×2 (12:07→21:00)
[2016-08-01] MEDS: QUEtiapine FUMARATE 200 MG TAB PO SCH (13:42)
[2016-08-01] MEDS: SIMETHICONE 80 MG TAB CHEW PO PRN (21:06)
[2016-08-01] MEDS: POLYETHYLENE GLYCOL 3350 17 GM PKT PO PRN (21:40)
[2016-08-01 22:27] VITALS: TEMP 98.4; O2SAT 97
[2016-08-02] MEDS: IBUPROFEN 600 MG TAB PO PRN ×2 (03:23→09:59)
[2016-08-02] MEDS: ACYCLOVIR 400 MG TAB PO SCH (09:57)
[2016-08-02] MEDS: LABETALOL HCL 100 MG TAB PO SCH (10:02)
[2016-08-02] MEDS: SENNOSIDES/DOCUSATE SODIUM TAB PO SCH (10:03)
[2016-08-02 10:09] VITALS: BP 119/75; PULSE 75
[2016-08-02] MEDS: lamoTRIgine 100 MG TAB PO SCH (10:18)
[2016-08-02] MEDS: QUEtiapine FUMARATE 200 MG TAB PO SCH (10:23)
== END 2016-08-02 15:15 | disposition home or self-care (01) | DRG 774 ==
LOC: FLD 18:09 → FOB 07-30 19:30
PROVIDERS: ADMIT Obstetrics & Gynecology; ATTEND Obstetrics & Gynecology
PROC: 0U7C7DZ Dilation of Cervix with Intraluminal Device, Via Natural or Artificial Opening (ICD-10-PCS; principal; 2016-07-28)
PROC: 10907ZC Drainage of Amniotic Fluid, Therapeutic from Products of Conception, Via Natural or Artificial Opening (ICD-10-PCS; principal; 2016-07-28)
PROC: 10E0XZZ Delivery of Products of Conception, External Approach (ICD-10-PCS; principal; 2016-07-28)
PROC: 3E033VJ Introduction of Other Hormone into Peripheral Vein, Percutaneous Approach (ICD-10-PCS; principal; 2016-07-28)
DX: O10.92 Unspecified pre-existing hypertension complicating childbirth (principal); O70.1 Second degree perineal laceration during delivery; O69.81X0 Labor and delivery complicated by cord around neck, without compression, not applicable or unspecified; Z3A.38 38 weeks gestation of pregnancy; Z37.0 Single live birth
CPT/HCPCS: J1200; J2210; J2370; J2405; J2590; J3105

== ENCOUNTER → 2016-08-05 | Outpatient (CLI) | payer OTHER | LOC: FLACT 14:24 | PROVIDERS: ATTEND Obstetrics & Gynecology | DX: O92.29 Other disorders of breast associated with pregnancy and the puerperium (principal) | CPT/HCPCS: G0463 ==

== ENCOUNTER → 2016-08-13 | Outpatient (CLI) | payer OTHER | LOC: FLACT 13:20 | PROVIDERS: ATTEND Obstetrics & Gynecology | DX: Z39.1 Encounter for care and examination of lactating mother (principal) | CPT/HCPCS: G0463 ==

== ENCOUNTER → 2016-09-30 | Outpatient (CLI) | payer OTHER | LOC: FLACT 15:15 | PROVIDERS: ATTEND Obstetrics & Gynecology | DX: Z39.1 Encounter for care and examination of lactating mother (principal) | CPT/HCPCS: G0463 ==

== ENCOUNTER 2018-02-24 17:24 | Emergency (ER) | payer OTHER ==
[2018-02-24] MEDS ORDERED: LET GEL TOPICAL 1 EA SYR TP ONE (17:51)
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
[2018-02-24] MEDS ORDERED: LORazepam 2 MG/ML INJ IVP ONE (18:51)
[2018-02-24 20:10] VITALS: BP 130/83
== END 2018-02-24 20:11 | disposition home or self-care (01) ==
LOC: EDUNIT#
PROC: 09QKXZZ Repair Nasal Mucosa and Soft Tissue, External Approach (ICD-10-PCS; principal; 2018-02-24)
DX: S02.2XXB Fracture of nasal bones, initial encounter for open fracture (principal); S09.90XA Unspecified injury of head, initial encounter; W00.0XXA Fall on same level due to ice and snow, initial encounter; Y92.89 Other specified places as the place of occurrence of the external cause; I10 Essential (primary) hypertension; Z87.820 Personal history of traumatic brain injury
CPT/HCPCS: 96374; J2060; J2270

== ENCOUNTER 2018-08-20 15:22 | Emergency (ER) | payer OTHER | END 2018-08-20 17:51 | disposition home or self-care (01) ==